=== PATIENT | female | born 1950 | race Hispanic/Latino ===

== ENCOUNTER 2021-06-26 15:24 | Outpatient (CLI) | payer MEDICARE | END 2021-06-26 15:25 | disposition home or self-care (01) | LOC: CSHMAMMO 15:24 | PROVIDERS: ATTEND Family Medicine | DX: Z12.31 Encounter for screening mammogram for malignant neoplasm of breast (principal); Z80.3 Family history of malignant neoplasm of breast | CPT/HCPCS: 77063; 77067 ==

== ENCOUNTER 2021-06-26 15:56 | Outpatient (CLI) | payer MEDICARE | END 2021-06-26 15:57 | disposition home or self-care (01) | LOC: CSHRAD 15:56 | PROVIDERS: ATTEND Family Medicine | DX: M54.50 Low back pain, unspecified (principal); M47.816 Spondylosis without myelopathy or radiculopathy, lumbar region | CPT/HCPCS: 72100 ==

== ENCOUNTER 2023-03-26 09:59 | Outpatient (CLI) | payer MEDICARE, MEDICAID | END 2023-03-26 10:00 | disposition home or self-care (01) | LOC: CSHMRI 09:59 | PROVIDERS: ATTEND Podiatrist Foot & Ankle Surgery | DX: M47.26 Other spondylosis with radiculopathy, lumbar region (principal); Z78.0 Asymptomatic menopausal state; M48.061 Spinal stenosis, lumbar region without neurogenic claudication | CPT/HCPCS: 72148; 77080 ==